=== PATIENT | female | born 1950 | race Caucasian/White ===

== ENCOUNTER 2016-06-30 09:52 | Emergency (ER) | payer OTHER ==
[~2016-06-30] VITALS: Ht 162.6 cm; Wt 95.0 kg
[2016-06-30 09:54] VITALS: BP 146/84; PULSE 91; RESP 18; TEMP 98.4; O2SAT 97
--- NOTE | 2016-06-30 10:24 | PD ---
HPI Chief Complaint: Flank/Kidney Pain Time Seen by Provider: 10:13 Travel History International Travel<30 days: No Contact w/Intl Traveler<30days: No Traveled to known affect area: No History of Present Illness HPI 66-year-old female here for evaluation of left flank pain. The patient reports that she was seen at another emergency department in October 2015 and was diagnosed with a left kidney stone. She has the paperwork of the CT report which shows a 7 x 3 mm distal left ureteral stone with [id number] hydronephrosis on the left. She states that she was told that the stone should pass on its own. Since this time she has had continued pain, worse over the last week. Pain is described as a sharp pain/ache, radiates to her left lower abdomen, constant, moderate. Today she felt nauseous and had 1 episode of vomiting. She denies urinary or bowel incontinence or retention. No urinary symptoms other than this morning she felt as though her urethra was having spasms. No paresthesias or motor deficits. PFSH Social History Tobacco Use: No Allergies-Medications (Allergen,Severity, Reaction): Coded Allergies: No Known Allergies (Unverified , 06/30/16) Reported Meds & Prescriptions Reported Meds & Active Scripts Active Reported Bc Fast Pain Relief Powder (Cbqoexl-Qnrgolqorzmu-Hnqrgxws Powder) 650-195-33.3 Mg Powderpack B Complex (B-Complex Vitamins) 1 Cap 1 Cap PO DAILY Review of Systems Except as stated in HPI: all other systems reviewed are Neg Physical Exam Narrative GENERAL: Well-developed, well-nourished, sitting comfortably on stretcher, no acute distress. SKIN: Focused skin assessment warm/dry. No rash. HEAD: Atraumatic. Normocephalic. EYES: Pupils equal and round. No scleral icterus. No injection or drainage. ENT: Mucous membranes pink and moist. NECK: Trachea midline. No JVD. CARDIOVASCULAR: Regular rate and rhythm. RESPIRATORY: No accessory muscle use. Clear to auscultation. Breath sounds equal bilaterally. GASTROINTESTINAL: Abdomen soft, non-tender, nondistended. MUSCULOSKELETAL: No obvious deformities. No clubbing. No cyanosis. No edema. No midline vertebral step-off or tenderness. No CVA tenderness. NEUROLOGICAL: Awake and alert. No obvious cranial nerve deficits. Motor grossly within normal limits. Normal speech. No saddle anesthesia. PSYCHIATRIC: Appropriate mood and affect; insight and judgment normal. Data Data Last Documented VS Vital Signs Date Time Temp Pulse Resp B/P Pulse Ox O2 Delivery O2 Flow Rate FiO2 06/30/16 11:13 15 06/30/16 09:54 98.4 91 146/84 97 Orders Complete Blood Count With Diff (06/30/16 10:20) Comprehensive Metabolic Panel (06/30/16 10:20) Prothrombin Time / Inr (Pt) (06/30/16 10:20) Act Partial Throm Time (Ptt) (06/30/16 10:20) Urinalysis - C+S If Indicated (06/30/16 10:20) Iv Access Insert/Monitor (06/30/16 10:20) Ecg Monitoring (06/30/16 10:20) Oximetry (06/30/16 10:20) Morphine Inj (Morphine Inj) (06/30/16 10:30) Ondansetron Inj (Zofran Inj) (06/30/16 10:30) Sodium Chlor 0.9% 1000 Ml Inj (Ns 1000 M (06/30/16 10:30) Ct Abd/Pel W Iv Contrast(Rout) (06/30/16 11:26) Iohexol 350 Inj (Omnipaque 350 Inj) (06/30/16 12:19) Labs Laboratory Tests Test 06/30/16 06/30/16 10:50 10:55 Urine Color LIGHT-YELLOW Urine Turbidity CLEAR Urine pH 6.5 Urine Specific [place] 1.008 Urine Protein NEG mg/dL Urine Glucose (UA) NEG mg/dL Urine Ketones NEG mg/dL Urine Occult Blood NEG Urine Nitrite NEG Urine Bilirubin NEG Urine Urobilinogen LESS THAN 2.0 MG/DL Urine Leukocyte Esterase NEG Urine RBC LESS THAN 1 /hpf Urine WBC 1 /hpf Urine Squamous Epithelial <1 /hpf Cells Urine Bacteria OCC /hpf Microscopic Urinalysis Comment CULT NOT INDICATED White Blood Count 7.5 TH/MM3 Red Blood Count 4.59 MIL/MM3 Hemoglobin 12.9 GM/DL Hematocrit 39.9 % Mean Corpuscular Volume 86.9 FL Mean Corpuscular Hemoglobin 28.0 PG Mean Corpuscular Hemoglobin 32.2 % Concent Red Cell Distribution Width 13.6 % Platelet Count 237 TH/MM3 Mean Platelet Volume 7.9 FL Neutrophils (%) (Auto) 55.4 % Lymphocytes (%) (Auto) 29.8 % Monocytes (%) (Auto) 6.8 % Eosinophils (%) (Auto) 6.9 % Basophils (%) (Auto) 1.1 % Neutrophils # (Auto) 4.1 TH/MM3 Lymphocytes # (Auto) 2.2 TH/MM3 Monocytes # (Auto) 0.5 TH/MM3 Eosinophils # (Auto) 0.5 TH/MM3 Basophils # (Auto) 0.1 TH/MM3 CBC Comment DIFF FINAL Differential Comment Prothrombin Time 10.4 SEC Prothromb Time International 0.9 RATIO Ratio Activated Partial 29.1 SEC Thromboplast Time Sodium Level 140 MEQ/L Potassium Level 4.0 MEQ/L Chloride Level 107 MEQ/L Carbon Dioxide Level 27.9 MEQ/L Anion Gap 5 MEQ/L Blood Urea Nitrogen 16 MG/DL Creatinine 0.62 MG/DL Estimat Glomerular Filtration 96 ML/MIN Rate Random Glucose 90 MG/DL Calcium Level 9.5 MG/DL Total Bilirubin 0.2 MG/DL Aspartate Amino Transf 11 U/L (AST/SGOT) Alanine Aminotransferase 21 U/L (ALT/SGPT) Alkaline Phosphatase 124 U/L Total Protein 7.8 GM/DL Albumin 3.7 GM/DL [facility] Medical Decision Making Medical Screen Exam Complete: Yes Emergency Medical Condition: Yes Medical Record Reviewed: Yes Differential Diagnosis Nephrolithiasis, ureterolithiasis, pyelonephritis, UTI, cystitis, diverticulitis , colitis, renal artery infarct, AAA/dissection less likely, cord compression unlikely Narrative Course Initial vital signs show heart rate 91, blood pressure 146/84, pulse ox 97% on room air, oral temp of 98.4F. CBC is unremarkable. CMP UA shows occasional bacteria, negative for occult blood, less than 1 rbc, not suggestive of UTI. CT abdomen pelvis: CONCLUSION: Normal examination. No renal stone or hydronephrosis is identified Patient was made aware of all findings. She is resting comfortably. States her pain has completely resolved. She is stable for discharge home with outpatient follow-up with a primary care physician this week. There are no red flags for low back pain. She was informed on when to return to the emergency department. She verbalizes understanding and agreement with plan. Diagnosis Primary Impression: Left flank pain Referrals: Primary Care Physician 3 days Additional Instructions: Follow-up with a primary care physician this week. Return to the emergency department for worsening symptoms or any other concerns. Disposition: 01 DISCHARGE HOME Condition: Stable Navi Dale MD June 30, 2016 10:24
[2016-06-30] MEDS ORDERED: MORPHINE SULFATE 4 MG/ML INJ IV PUSH ONE (10:30)
[2016-06-30] MEDS ORDERED: ONDANSETRON HCL 4 MG/2 ML VIAL IV PUSH ONE (10:30)
[2016-06-30] MEDS ORDERED: SODIUM CHLOR 0.9% 1000 ML INJ 1,000 ML IV ONE (10:30)
[2016-06-30 11:12] LABS: AUTOMATED NEUTROPHIL # 4.1 TH/MM3 (1.8-7.7); BASOPHIL # 0.1 TH/MM3 (0-0.2); BASOPHIL % 1.1 % (0.0-2.0); EOSINOPHIL # 0.5 TH/MM3 (0-0.4); EOSINOPHIL % 6.9 % (0.0-4.0); HEMATOCRIT 39.9 % (35.0-46.0); HEMO FLAGS DIFF FINAL; LYMPH % 29.8 % (9.0-44.0); LYMPHOCYTE # 2.2 TH/MM3 (1.0-4.8); MEAN CELL VOLUME 86.9 FL (80.0-100.0); MEAN CORPUSCULAR HGB CONC 32.2 % (32.0-36.0); MONO % 6.8 % (0.0-8.0); NEUT % 55.4 % (16.0-70.0); PLATELET COUNT 237 TH/MM3 (150-450); RED BLOOD COUNT 4.59 MIL/MM3 (4.00-5.30); RED CELL DISTRIBUTION WIDTH 13.6 % (11.6-17.2); WHITE BLOOD COUNT 7.5 TH/MM3 (4.0-11.0)
[2016-06-30 11:13] VITALS: RESP 15
[2016-06-30 11:15] LABS: BACTERIA, URINE OCC /hpf; BLOOD, URINE NEG (NEG); GLUCOSE,URINE NEG (NEG); KETONE, URINE NEG (NEG); NITRITE,URINE NEG (NEG); PH, URINE 6.5 (5.0-8.5); SQUAMOUS EPITHELIAL CELL URINE <1 /hpf (0-5); URINE COLOR LIGHT-YELLOW (YELLW/STRAW)
[2016-06-30 11:16] LABS: COMMENT (UR) CULT NOT INDICATED; CULTURE IF INDICATED CULT NOT INDICATED
[2016-06-30 11:22] LABS: APTT (PATIENT) 29.1 SEC (24.3-30.1); INTERNATIONAL NORMALIZED RATIO 0.9 RATIO; PROTHROMBIN TIME - PATIENT 10.4 SEC (9.8-11.6)
[2016-06-30 11:28] LABS: ALT (GPT) 21 U/L (10-53); ANION GAP 5 MEQ/L (5-15); AST (GOT) 11 U/L (15-37); BICARBONATE 27.9 MEQ/L (21.0-32.0); BLOOD UREA NITROGEN 16 MG/DL (7-18); CHLORIDE 107 MEQ/L (98-107); GLOMERULAR FILTRATION RATE 96 ML/MIN (>89); SODIUM (NA) 140 MEQ/L (136-145)
[2016-06-30] MEDS ORDERED: BC FPOW12 (11:29)
[2016-06-30] MEDS ORDERED: VITACAP7 PO (11:29)
[2016-06-30] MEDS ORDERED: HYDR-3583 PO (11:29)
[2016-06-30 11:30] LABS: ALKALINE PHOSPHATASE 124 U/L (45-117); TOTAL BILIRUBIN ADULT 0.2 MG/DL (0.2-1.0)
[2016-06-30] MEDS ORDERED: IOHEXOL 350 MG/ML 10 ML VIAL (for RAD DIAG) IV ONE (12:19)
--- NOTE | 2016-06-30 13:33 | RADRPT ---
EXAM DATE/TIME: 06/30/2016 12:12 [facility] COMPARISON: No previous studies available for comparison. INDICATIONS : Left flank pain, history of kidney stones IV CONTRAST: 92 cc Omnipaque 350 (iohexol) IV ORAL CONTRAST: No oral contrast ingested. RADIATION DOSE: 14.90 CTDIvol (mGy) MEDICAL HISTORY : Renal calculi. SURGICAL HISTORY : Hysterectomy. ENCOUNTER: Initial ACUITY: 1 day PAIN SCALE: 9/10 LOCATION: Left flank TECHNIQUE: Volumetric scanning of the abdomen and pelvis was performed. Using automated exposure control and ad justment of the mA and/or kV according to patient size, radiation dose was kept as low as reasonably achievable to obtain optimal diagnostic quality images. FINDINGS: LOWER LUNGS: The visualized lower lungs are clear. LIVER: Homogeneous density without lesion. There is no dilation of the biliary tree. No calcified gallston es. SPLEEN: Normal size without lesion. PANCREAS: Within normal limits. KIDNEYS: Normal in size and shape. There is no mass, stone or hydronephrosis. ADRENAL GLANDS: Within normal limits. VASCULAR: There is no aortic aneurysm. BOWEL/MESENTERY: The stomach, small bowel, and colon demonstrate no acute abnormality. There is no free intraperitone al air or fluid. ABDOMINAL WALL: Within normal limits. RETROPERITONEUM: There is no lymphadenopathy. BLADDER: No wall thickening or mass. REPRODUCTIVE: Within normal limits. INGUINAL: There is no lymphadenopathy or hernia. MUSCULOSKELETAL: Within normal limits for patient age. CONCLUSION: Normal examination. No renal stone or hydronephrosis is identified Travis Capellan MD on June 30, 2016 at 13:30 Board Certified Radiologist. This report was verified electronically.
== END 2016-06-30 14:15 | disposition home or self-care (01) ==
LOC: NEPD 09:52
DX: R10.9 Unspecified abdominal pain (principal)
CPT/HCPCS: 74177; 80053; 81001; 85025; 85610; 85730; 96374; 96375; 99284; J2270; J2405; J7030; Q9967